=== PATIENT | female | born 1975 | race Caucasian/White ===

== ENCOUNTER 2016-05-06 21:21 | Emergency (ER) | payer BC, OTHER ==
[2016-05-06 21:44] VITALS: BP 135/82
[2016-05-06] MEDS ORDERED: Polymyx/Trimethoprim OPTH* 10 ML BTL LEFT EYE ONE (21:59)
--- NOTE | 2016-05-06 22:02 | UC ---
Eye Complaint HPI - HPI Summary HPI Summary: Stye in left lower lid-noticed some irritation 2 days ago and a "lump tonight" - History of Current Complaint Chief Complaint: UCEye Stated Complaint: EYE COMPLAINT Time Seen by Provider: 05/06/16 21:47 Hx Obtained From: Patient Hx Last Menstrual Period: 2 WEEKS AGO ?: No Onset/Duration: Sudden Onset, Lasting Days - 2, Still Present, Worse Since - today Timing: Constant Severity Initially: Mild Severity Currently: Mild Pain Intensity: 2 Pain Scale Used: 0-10 Numeric Location of Injury: Eye Lid (lower) Character: Foreign Body Sensation Aggravating Factor(s): Nothing Associated Signs And Symptoms: Positive: Negative - Allergies/Home Medications Allergies/Adverse Reactions: Allergies Allergy/AdvReac Type Severity Reaction Status Date / Time No Known Allergies Allergy Verified 05/06/16 21:44 Home Medications: Home Medications NK [No Home Medications Reported] 05/06/16 [History Confirmed 05/06/16] PMH/Surg Hx/FS Hx/Imm Hx Previously Healthy: Yes Endocrine History Of: Denies: Diabetes, Thyroid Disease Cardiovascular History Of: Denies: Cardiac Disorders, Hypertension Respiratory History Of: Denies: COPD, Asthma GI/ History Of: Denies: Ulcer Cancer History Of: Denies: Breast Cancer - Surgical History Surgical History: Yes Surgery Procedure, Year, and Place: June 2005 and April 2009. 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 Lives: With Family Alcohol Use: Occasionally Substance Use Type: None Smoking Status (MU): Never Smoked Tobacco Review of Systems Constitutional: Negative Skin: Negative Eyes: Negative, Other - lower left lid tender ENT: Negative Respiratory: Negative Cardiovascular: Negative Gastrointestinal: Negative Genitourinary: Negative Motor: Negative Neurovascular: Negative Musculoskeletal: Negative Neurological: Negative Psychological: Negative All Other Systems Reviewed And Are Negative: Yes Physical Exam Triage Information Reviewed: Yes Appearance: Well-Appearing, No Pain Distress, Well-Nourished Vital Signs: Initial Vital Signs Temp 98.4 F 05/06/16 21:39 Pulse 88 05/06/16 21:39 Resp 16 05/06/16 21:39 BP 135/82 05/06/16 21:39 Pulse Ox 99 05/06/16 21:39 Vital Signs Reviewed: Yes Eye Exam: Normal Eyes: Positive: Conjunctiva Clear, Other: - smal firm lesion inside left lower lid ENT Exam: Normal ENT: Positive: Normal ENT inspection, Hearing grossly normal, Pharynx normal. Negative: Nasal congestion, Nasal drainage, Tonsillar swelling, Tonsillar exudate, Trismus, Muffled/hoarse voice Neck exam: Normal Neck: Positive: Supple, Nontender, No Lymphadenopathy Respiratory Exam: Normal Respiratory: Positive: Chest non-tender, No respiratory distress, No accessory muscle use Cardiovascular Exam: Normal Cardiovascular: Positive: RRR, Pulses Normal, Brisk Capillary Refill Musculoskeletal Exam: Normal Musculoskeletal: Positive: Strength Intact, ROM Intact, No Edema Neurological Exam: Normal Neurological: Positive: Alert, Muscle Tone Normal Psychological Exam: Normal Skin Exam: Normal Eye Complaint Course/Dx - Course Course Of Treatment: eye drops, warm compress, follow with opthamology - Differential Dx/Diagnosis Differential Diagnosis/HQI/PQRI: Periorbital Cellulitis, Orbital Cellulitis, Other - stye Provider Diagnoses: Hordeolum left lower eye lid Discharge - Discharge Plan Condition: Stable Disposition: HOME Patient Education Materials: Stye (ED), How to Use Eye Drops (ED), Heat Pack Application (ED) Referrals: Monico Vigil MD [Medical Doctor] - 7 Days Waleska Hoang MD [Medical Doctor] -
== END 2016-05-06 22:27 | disposition home or self-care (01) ==
LOC: UCEAST 21:21
DX: H00.015 Hordeolum externum left lower eyelid (principal)
CPT/HCPCS: 99212; G0463

== ENCOUNTER 2018-10-28 01:32 | Emergency (ER) | payer BC, OTHER ==
--- OUTSIDE RECORDS SUMMARY | 2018-10-28 02:03 | XMS REPORT | Continuity of Care Document ---
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 Allergies, Adverse Reactions, Alerts Description No Known Drug Allergies Medications Active Medications SIG Qnty Indications Ordering Provider Date Levothyroxine Sodium 50mcg by mouth 30tabs R94.6 Brayden Be MD 2018 daily on empty 50mcg Tablets stomach Multi For Her 50+ 1 by mouth every Unknown day Capsules Norethindrone Acetate 1 by mouth three Unknown 5mg times daily for Tablets 7 days then take 1 tablet by mouth daily. Immunizations Description No Information Available Vital Signs Date Vital Result Comment 10/23/2018 9:09am Height 62 inches 5'2" Weight 228.00 lb Heart Rate 87 /min BP Systolic 121 mmHg BP Diastolic 79 mmHg O2 % BldC Oximetry 96 % BMI (Body Mass Index) 41.7 kg/m2 Last Menstrual Period [id number] 10/12/2018 11:20am Height 62 inches 5'2" Weight 235.00 lb w/o shoes Heart Rate 87 /min BP Systolic Sitting 129 mmHg BP Diastolic Sitting 91 mmHg BMI (Body Mass Index) 43.0 kg/m2 Results Test Date Facility Test Result H/L Range Note Laboratory test 10/23/2018 [facility] Surgical <pending> finding [address] [place] [address] [phone] CBC Auto Diff 10/22/2018 [facility] White Blood 10.1 Normal 3.5-10.[address] Count 10^3/[place] [address] [phone] Red Blood Count 3.85 10^6/uL Normal 3.70-4.87 Hemoglobin 10.8 g/dL Low 12.0-16.0 Hematocrit 32 % Low 35-47 Mean Corpuscular Volume 82 fL Normal 80-97 Mean Corpuscular Hemoglobin 28 pg Normal 27-31 Mean Corpuscular HGB Conc 34 g/dL Normal 31-36 Red Cell Distribution Width 15 % Normal 10-15 Platelet Count 361 10^3/uL Normal 150-450 Mean Platelet Volume 8.5 fL Normal 7.4-10.4 Abs Neutrophils 7.0 10^3/uL Normal 1.5-7.7 Abs Lymphocytes 2.2 10^3/uL Normal 1.0-4.8 Abs Monocytes 0.6 10^3/uL Normal 0-0.8 Abs Eosinophils 0.1 10^3/uL Normal 0-0.6 Abs Basophils 0.0 10^3/uL Normal 0-0.2 Abs Nucleated RBC 0.0 10^3/uL Granulocyte % 69.6 % Lymphocyte % 22.2 % Monocyte % 6.4 % Eosinophil % 1.4 % Basophil % 0.4 % Nucleated Red Blood Cells % 0.1 Laboratory test 10/22/2018 [facility] HCG < 0.60 mIU/ mL [address] [place] [address] [phone] FSH (Follicle Stim Hormone) 9.1 mIU/mL 2 1 <5.0 Negative 5.0 - 25.0 Indeterminate (Repeat testing recommended after 72 hours) >25.0 Positive Perimenopausal women can display HCG levels of up to 20 mIU/mL 2 Normally menstruating females - Follicular phase 3 - 9 - Mid-cycle peak 4 - 23 - Luteal phase 1 - 6 Postmenopausal females 16 - 114 Procedures Description No Information Available Medical Devices Description No Information Available Encounters Type Date Location Provider Dx Diagnosis Office Visit 10/12/2018 [facility] Brayden Be MD R94.6 Abnormal results 11:00a Endocrinology [facility] of thyroid function studies E04.1 Nontoxic single thyroid nodule R63.5 Abnormal weight gain Z68.41 Body mass index (BMI) 40.0-44.9, adult Assessments Date Code Description Provider 10/12/2018 R94.6 Abnormal results of thyroid function studies Brayden Be MD 10/12/2018 E04.1 Nontoxic single thyroid nodule Brayden Be MD 10/12/2018 R63.5 Abnormal weight gain Brayden Be MD 10/12/2018 Z68.41 Body mass index (BMI) 40.0-44.9, adult Brayden Be MD Plan of Treatment Future Appointment(s):01/15/2019 9:00 am - Warren Medrano at [facility] Functional Status Description No Information Available Mental Status Description No Information Available Referrals Description No Information Available
--- OUTSIDE RECORDS SUMMARY | 2018-10-28 02:03 | XMS REPORT | Continuity of Care Document ---
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 No Information Available Social History Type Date Description Comments Sex Unknown ETOH Use Occasionally consumes average once weekly alcohol Tobacco Use Start: Unknown Patient is a former quit in her 20's End: Unknown smoker Recreational Drug Use Denies Drug Use Smoking Status Reviewed: 10/12/18 Patient is a former quit in her [...] 1 by mouth every Unknown day Capsules Immunizations Description No Information Available Vital Signs Date Vital Result Comment 10/12/2018 11:20am Height 62 inches 5'2" Weight 235.00 lb w/o shoes Heart Rate 87 /min BP Systolic Sitting 129 mmHg BP Diastolic Sitting 91 mmHg BMI (Body Mass Index) 43.0 kg/m2 Results Description No Information Available Procedures Description No Information Available Medical Devices Description No Information Available Encounters Description No Information Available Assessments Date Code Description Provider 10/12/2018 E04.1 Nontoxic single thyroid nodule Brayden Be MD 10/12/2018 R94.6 Abnormal results of thyroid function studies Brayden Be MD 10/12/2018 Z68.41 Body mass index (BMI) 40.0-44.9, adult Brayden Be MD Plan of Treatment Future Appointment(s):01/15/2019 9:00 am - LACY Medrano-Samir at [facility]10/12/2018 - Brayden Be MDE04.1 Nontoxic single thyroid noduleNew Xrays:US Thyroid, Scheduled: 10/26/18Follow up:3 months EdgarInstructions:1. Start trial of levothyroxine 50mcg daily. 2. Return in 4-6 weeks for non-fasting blood tests. 3. Schedule an ultrasound of the thyroid. 4. Try Lose It application for weight loss and target carbohydrate goal of 45g/day or less. 5. Return in 3 months for a follow-up visit with Asia Hernández.R94.6 Abnormal results of thyroid function studiesNew Medication: Levothyroxine Sodium 50 mcg - 50mcg by mouth daily on empty stomachNew Labs:TSH (Thyroid Stim Horm), Scheduled: 10/12/18Free T4 (Free Thyroxine), Scheduled: Z68.41 Body mass index (BMI) 40.0-44.9, adult Functional Status Description No Information Available Mental Status Description No Information Available Referrals Description No Information Available
--- NOTE | 2018-10-28 02:07 | ED ---
Shortness of Breath - HPI Summary HPI Summary: Pt is a 43 y/o F presenting to the ED with a chief complaint of shortness of breath. She states she has had strange symptoms recently, including intense vaginal bleeding that she has been treating, and increased fatigue. She woke up out of a sleep with very sudden shortness of breath and palpitations, but her sx have since resolved. - History of Current Complaint Chief Complaint: EDShortnessOfBreath Time Seen by Provider: 10/28/18 01:41 Hx Obtained From: Patient Onset/Duration: Sudden Onset, Lasting Minutes, Resolved Current Severity: Moderate Dyspnea At: Other - woke her up Aggravating Factors: Nothing Alleviating Factors: Spontaneous Resolution - Allergy/Home Medications Allergies/Adverse Reactions: Allergies Allergy/AdvReac Type Severity Reaction Status Date / Time No Known Allergies Allergy Verified 05/06/16 21:44 PMH/Surg Hx/FS Hx/Imm Hx Previously Healthy: Yes Endocrine/Hematology History: Denies: Hx Diabetes, Hx Thyroid Disease Cardiovascular History: Denies: Hx Hypertension Respiratory History: Denies: Hx Asthma, Hx Chronic Obstructive Pulmonary Disease (COPD) GI History: Denies: Hx Ulcer - Cancer History Hx Chemotherapy: No Hx Radiation Therapy: No - Surgical History Surgery Procedure, Year, and Place: June 2005 and April 2009. d+c, foreign object removal (IUD) laproscopic spring 2011, Uterine/ovarian cyst removal 1997, LEFT EYE MILLIA REMOVAL 01/2016 - Immunization History Immunizations Up to Date: Yes Infectious Disease History: No Infectious Disease History: Denies: Hx Hepatitis, Hx Human Immunodeficiency Virus (HIV), History Other Infectious Disease, Traveled Outside the [place] in Last 30 Days - Family History Known Family History: Negative: Hypertension - Social History Alcohol Use: Occasionally Hx Substance Use: No Substance Use Type: Reports: None Hx Tobacco Use: No Smoking Status (MU): Never Smoked Tobacco Review of Systems Positive: Fatigue Positive: Palpitations Positive: Shortness Of Breath Positive: other - vaginal bleeding All Other Systems Reviewed And Are Negative: Yes Physical Exam - Summary Physical Exam Summary: Appearance: Well-appearing, Well-nourished, lying in bed comfortably Skin: Warm, dry, no obvious rash Eyes: sclera anicteric, no conjunctival pallor ENT: mucous membranes moist, pharynx appears normal Neck: Supple, nontender Respiratory: Clear to auscultation, no signs of respiratory distress Cardiovascular: Normal S1, S2. No murmurs. Normal distal pulses in tibial and radial bilaterally. Abdomen: Soft, nontender, normal active bowel sounds present Musculoskeletal: Normal, Strength/ROM Intact Neurological: A&Ox3, awake and alert, mentation is normal, speech is fluent and appropriate Psychiatric: affect is normal, does not appear anxious or depressed Triage Information Reviewed: Yes Vital Signs On Initial Exam: Initial Vitals Temp Pulse Resp BP Pulse Ox 98.8 F 94 18 139/87 99 10/28/18 01:34 10/28/18 01:34 10/28/18 01:34 10/28/18 01:34 10/28/18 01:34 Vital Signs Reviewed: Yes Diagnostics - Vital Signs Vital Signs Temp Pulse Resp BP Pulse Ox 10/28/18 01:34 98.8 F 94 18 139/87 99 - Laboratory Result Diagrams: 10/28/18 02:16 Lab Statement: Any lab studies that have been ordered have been reviewed, and results considered in the medical decision making process. Course/Dx - Course Course Of Treatment: Pt is a 43 y/o F presenting to the ED with a chief complaint of shortness of breath. She states she has had strange symptoms recently, including intense vaginal bleeding that she has been treating, and increased fatigue. She woke up out of a sleep with very sudden shortness of breath and palpitations, but her sx have since resolved. Pt's physical exam is nml. Pt's bloodwork is WNL. She will be d/c'ed with dx of parasomnia. She is stable and agreeable with this plan. - Diagnoses Provider Diagnoses: Parasomnia Discharge ED - Sign-Out/Discharge Documenting (check all that apply): Patient Departure Patient Received Moderate/Deep Sedation with Procedure: No - Discharge Plan Condition: Good Disposition: HOME Patient Education Materials: Dyspnea (ED) Referrals: Priya Nguyen MD [Primary Care Provider] - Additional Instructions: I think you suffered from a parasomnia tonight, which is a disruption in your sleep cycle. This could be from the stress or perhaps the hormones you were prescribed. It is a benign condition, so you can continue the medication. We do not see any sign of a primary problem in the lungs. - Billing Disposition and Condition Condition: GOOD Disposition: Home - Attestation Statements Document Initiated by David: Yes Documenting Scribe: Loli Smith Provider For Whom David is Documenting (Include Credential): Andrés Mejia MD. Scribe Attestation: Loli Mustafa, lanceed for Andrés Mejia MD. on 10/29/18 at 0506. Scribe Documentation Reviewed: Yes Provider Attestation: The documentation as recorded by the jesusibe, Loli Smith accurately reflects the service I personally performed and the decisions made by me, Andrés Mejia MD. Status of Scribe Document: Viewed
[2018-10-28 02:23] LABS: ABS Eosinophils 0.1 10^3/ul (0-0.6); ABS Lymphocytes 2.2 10^3/ul (1.0-4.8); ABS Monocytes 0.8 10^3/ul (0-0.8); Eosinophil % 1.2 %; Hematocrit 31 % (35-47); Hemoglobin 10.4 g/dL (12.0-16.0); Lymphocyte % 21.8 %; Mean Corpuscular HGB Conc 33 g/dL (31-36); Mean Corpuscular Hemoglobin 28 pg (27-31); Mean Corpuscular Volume 83 fL (80-97); Mean Platelet Volume 7.8 fL (7.4-10.4); Platelet Count 338 10^3/uL (150-450); Red Blood Count 3.77 10^6 /uL (3.70-4.87); Red Cell Distribution Width 15 % (10-15); White Blood Count 10.3 10^3/uL (3.5-10.8)
[2018-10-28 02:44] VITALS: BP 113/72
== END 2018-10-28 03:09 | disposition home or self-care (01) ==
LOC: ED 01:32
DX: G47.50 Parasomnia, unspecified (principal); R06.02 Shortness of breath; R53.83 Other fatigue; R00.2 Palpitations
CPT/HCPCS: 36415; 85025; 99282

== ENCOUNTER 2018-11-07 11:30 | Observation (INO) | payer BC ==
[2018-11-07] MEDS ORDERED: Scopolamine 1.5 mg* PATCH ONE (12:48)
[2018-11-07] MEDS ORDERED: LORazepam TAB(*) 1 MG ONE (12:49)
[2018-11-07] MEDS ORDERED: oxyCODONE SR TAB(*) 10 MG TAB.SR ONE (12:49)
[2018-11-07] MEDS ORDERED: Ondansetron INJ* 2 MG/ML VIAL ONE (12:49)
[2018-11-07] MEDS ORDERED: Naproxen TAB* 250 MG ONE (12:49)
[2018-11-07] MEDS ORDERED: Clindamycin 900 MG/D5W BAG(*) 900 MG/50 ML BAG IVPB ONE (13:00)
[2018-11-07] MEDS ORDERED: Lidocaine 1% INJ* 10 MG/ML 30 ML SDV ONE (13:10)
[2018-11-07] MEDS ORDERED: Iohexol 350 (CONTRAST) 200 ML MDV IV ONE (13:10)
[2018-11-07] MEDS ORDERED: Heparin 2 UNITS/ML IVPREMIX* 2,000 ML IV ONE (13:11)
[2018-11-07] MEDS ORDERED: Midazolam* 1 MG/ML 5 ML VIAL (5 MG) ONE ×2 (13:27→14:38)
[2018-11-07] MEDS ORDERED: fentaNYL* 50 MCG/ML 5 ML VIAL (250 MCG VIAL) ONE ×2 (13:27→14:48)
[2018-11-07] MEDS ORDERED: Ketorolac INJ* 30 MG/ML 1 ML VIAL ONE (13:27)
[2018-11-07] MEDS ORDERED: nitroGLYCERIN DRIP* 25,000 MCG/250 ML BTL ONE (13:31)
[2018-11-07] MEDS ORDERED: Heparin(*) 1000 UNIT/ML 10 ML VIAL CATH LAB IV ONE (14:02)
[2018-11-07] MEDS ORDERED: VERAPAMIL 2.5 MG/ML 2 ML VIAL ** 5 mg/2 ml ONE (14:02)
[2018-11-07] MEDS ORDERED: PROCHLORPERAZINE INJ 5 MG/ML 2 ML VIAL ONE (14:55)
[2018-11-07] MEDS ORDERED: HYDROmorphone INJ1* 1 MG/ML SYRINGE ONE ×2 (15:59→17:24)
[2018-11-07] MEDS ORDERED: HYDROmorphone PCA* 20 MG/20 ML PCA.SYRING ONE (16:21)
[2018-11-07] MEDS ORDERED: Docusate CAP* 100 MG PO PRN (17:49)
[2018-11-07] MEDS ORDERED: ALPRAZolam TAB* 0.25 MG PO PRN (17:49)
--- NOTE | 2018-11-07 19:20 | PN ---
Progress Note - Progress Note Date of Service: 11/07/18 SOAP: Subjective: Sleeping quietly. When woken up states pain is "7/10". Denies nausea or emesis. Has had sips of ice water. + vaginal bleeding (unchanged from presentation today) Objective: Selected Entries 11/07/18 18:33 Temperature 98.5 F Temperature Temporal Artery Source Scan Pulse Rate 70 Respiratory 18 Rate Blood Pressure 114/61 (mmHg) O2 Sat by Pulse 99 Oximetry Oxygen Flow 2 Rate Sleeping, but arousable to voice. AAO x 3 Low abdomen and pelvis are soft, but tender to deep palpation over the suprapubic area. Left radial pulse is 2+ Tegaderm is clean, dry and intact. No hematoma. No bleeding. Left hand is warm to touch. Left hand and wrist motor function is grossly intact. Sensation to light touch in the distribution of the left radial/median/ulnar nerves intact. Assessment: 43 YOF status post left radial arteriotomy Uterine Fibroid Arterial Embolization with pain and nausea adequately controlled. Plan: 1. Wrist brace may be removed at 2400 hours if patient is awake and/or it is bothering her. Otherwise it will be removed in the AM. 2. Continute routine post UFE care per IR protocol with addition of PRN compazine for nausea/emesis. 3. IR will round in AM. 4. Advance PO cautiously. 5. Care and plan d/w Jorgito, the overnight RN caring for her.
[2018-11-07] MEDS ORDERED: PROCHLORPERAZINE INJ 5 MG/ML 2 ML VIAL IV PRN (19:21)
--- NOTE | 2018-11-07 19:35 | HP ---
CC: Dr. Priya Nguyen; Dr. Wilfrid Watson; Dr. Adam Burton * HISTORY AND PHYSICAL: DATE OF ADMISSION: 11/07/18 PRIMARY CARE PROVIDER: Dr. Priya Nguyen. OUTPATIENT SUPERVISOR DRILLING AND SHOOTING: Dr. Wilfrid Watson. INTERVENTIONAL RADIOLOGIST: Dr. Adam Burton ATTENDING PHYSICIAN: Dr. Marga Clark.* (DICTATED BY DELTA MANCINI NP) REASON FOR VISIT: Uterine fibroid embolization. HISTORY OF PRESENT ILLNESS: Ms. Jeffries is a 43-year-old G2, P2-0-1- 3, with past medical history of anxiety, anemia and hypothyroidism, who presents [place] [facility] [place] an elective uterine fibroid embolization. The patient has been experiencing prolonged periods and recently began experiencing menorrhagia and noted to pass some clots reportedly as large as strawberries. The patient notes that this has interfered with her day-to-day life. She was referred to Dr. Burton and after consultation, she elected to proceed with a uterine fibroid embolization. In the PACU, the patient is quite sedated and is unable to provide much subjective information, though notes significant abdominal cramping. She reports that pain medications she is receiving are helping to some degree, though not taking the pain away to a tolerable level. She is also experiencing nausea, though no vomiting. At the end of the procedure, the patient reportedly complained of some left arm tingling after the left radial access site was de- accessed, though that has resolved and the patient no longer has any complaints related to the left arm. The hospitalist service was asked to see the patient for admission for observation postoperatively. PAST MEDICAL HISTORY: 1. Uterine fibroids. 2. Endometriosis. 3. Anemia. 4. Hypothyroidism. 5. Anxiety. PAST SURGICAL HISTORY: 1. section x2. 2. D and C. 3. Laparoscopic removal of perforated IUD. 4. Oophorectomy (unclear if this is accurate as both ovaries have been visualized on recent ultrasound). HOME MEDICATIONS: 1. Alprazolam 0.25 mg p.o. b.i.d. p.r.n. anxiety. 2. Docusate 100 mg p.o. b.i.d. p.r.n. constipation. 3. Ferrous sulfate 325 mg p.o. b.i.d. 4. Levothyroxine 50 mcg p.o. daily. 5. Norethindrone 1 tab p.o. daily. ALLERGIES: No known drug allergies. FAMILY HISTORY: The patient's mother has a history of diabetes, hyperlipidemia , and hypertension. Father has a history of psoriasis, hyperlipidemia, and hypertension. 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 The patient is a former smoker. She consumes occasional alcohol. She lives at home with her and children. The patient's , Toby, will be her surrogate decision maker in the event she is unable to make her own decisions. REVIEW OF SYSTEMS: An 11-point review of systems was attempted and all the pertinent positive and negative findings are in the HPI, although review of systems was difficult due to sedation. All other systems are negative. PHYSICAL EXAMINATION GENERAL: Ms. Jeffries is a well-developed, well-nourished, overweight , white middle-aged female, lying in bed, in no acute distress. She appears her stated age. VITAL SIGNS: Temp 97.9, heart rate 77, respiratory rate 23, oxygen saturation 98% on 2 L, blood pressure 139/92. HEENT: Head is atraumatic, normocephalic. Visual wyatt are grossly intact. Oral mucous membranes moist. NECK: Thyroid not palpable. Trachea at midline. No lymphadenopathy. RESPIRATORY: Symmetrical chest expansion. No chest wall deformities. Lungs are clear to auscultation throughout. No rhonchi, wheezes, or rubs. CARDIOVASCULAR: Regular rate and rhythm. S1, S2 present. No murmurs, rubs, or gallops. ABDOMEN: Deferred due to pain. EXTREMITIES: Skin warm and smooth bilaterally. No edema. NEURO: Sedated, but arouses to voice, oriented x4. Moves all extremities. No neurological deficits to left upper extremity. SKIN: There is a left radial access site, which is clean, dry, and intact. DIAGNOSTIC STUDIES/LAB DATA: Beta hCG today less than 0.60. Lab work on 10/28 reveals WBC 10.3, RBC 3.77, hemoglobin 10.4, hematocrit 31, platelets 338. ASSESSMENT AND PLAN: Ms. Jeffries is a 43-year-old female with past medical history of anxiety, anemia, hypothyroidism and uterine fibroids, who presents [place] [facility] [place] for an elective uterine fibroid embolization with Dr. Burton. The patient will be admitted observation for: 1. Status post uterine fibroid embolization. The patient will be placed on typical UFE orders and paper orders have been completed by Dr. Burton. The patient will have a Dilaudid PHARMACY BENEFITS COORDINATOR for pain as well as Toradol. She will have Zofran available for nausea and already has a scopolamine patch in place. Dr. Burton has already written orders to remove the Hassan, advance diet slowly, and when the patient may come off bedrest. Regarding the patient's access site, this will be treated per [facility] protocol. Dr. Burton did speak with the nurse in the PACU who has received specific instructions on neurovascular checks on the left upper extremity to ensure there are no recurrent symptoms. The patient will be monitored and will likely be discharged in the morning as long as she does well overnight. 2. Anxiety. Continue alprazolam. 3. Hypothyroidism. Continue levothyroxine. 4. Anemia. Continue ferrous sulfate. 5. FEN. Dr. Burton has ordered normal saline at 125 mL per hour. As noted above, she will have a regular diet starting with clears and advancing as tolerated. 6. Code status. The patient will be a full code. 7. DVT prophylaxis. According to the DVT Risk Assessment, the patient scores a 4, putting her at high risk. I have ordered SCDs, though have not ordered any chemical prophylaxis at this time due to her postoperative status. TIME SPENT: Approximately 45 minutes was spent on this admission, about half of that time spent with the patient obtaining my history, performing my physical exam, and reviewing the plan of care. This case has been reviewed with my attending, Dr. Clark, who is in agreement with the plan of care. DELTA MANCINI, ANNE [id number]/[facility] #: [id number] JESSICA
[2018-11-07] MEDS ORDERED: NS 0.9% 1000 ML** 1,000 ML IV SCH (19:45)
[2018-11-07] MEDS ORDERED: HYDROmorphone PCA 1 MG/ML Titrat per Protocol PCA SCH (20:00)
[2018-11-07] MEDS: Ondansetron INJ* 2 MG/ML VIAL IV SCH (21:30)
[2018-11-07] MEDS: Ketorolac INJ* 15 MG/ML 1 ML VIAL IV PUSH SCH (21:32)
[2018-11-07] MEDS: Ferrous Sulfate TAB* 325 MG PO SCH (21:34)
[2018-11-08] MEDS: Ondansetron INJ* 2 MG/ML VIAL IV SCH ×2 (03:20→09:24)
[2018-11-08] MEDS: Ketorolac INJ* 15 MG/ML 1 ML VIAL IV PUSH SCH ×2 (03:22→09:23)
[2018-11-08 05:46] LABS: ABS Lymphocytes 1.3 10^3/ul (1.0-4.8); ABS Monocytes 0.7 10^3/ul (0-0.8); ABS Neutrophils 10.2 10^3/ul (1.5-7.7); Eosinophil % 0.1 %; Hematocrit 36 % (35-47); Hemoglobin 11.3 g/dL (12.0-16.0); Lymphocyte % 10.6 %; Mean Corpuscular HGB Conc 32 g/dL (31-36); Mean Corpuscular Hemoglobin 27 pg (27-31); Mean Corpuscular Volume 85 fL (80-97); Mean Platelet Volume 8.6 fL (7.4-10.4); Platelet Count 330 10^3/uL (150-450); Red Blood Count 4.18 10^6 /uL (3.70-4.87); Red Cell Distribution Width 16 % (10-15); White Blood Count 12.3 10^3/uL (3.5-10.8)
[2018-11-08] MEDS ORDERED: Levothyroxine TAB* 50 MCG TAB PO SCH (06:00)
[2018-11-08 06:05] LABS: BUN/Creatinine Ratio 12.9 (8-20); EGFR Non-African American 104.1 (>60)
[2018-11-08] MEDS ORDERED: NORETHINDRONE ACETATE 5 MG PO SCH ×2 (09:00)
[2018-11-08] MEDS: Ferrous Sulfate TAB* 325 MG PO SCH (09:27)
[2018-11-08] MEDS ORDERED: HYDROcodone/ACETAMIN 5-325 MG* 1 TAB PO PRN (09:43)
--- NOTE | 2018-11-08 09:52 | PN ---
Progress Note - Progress Note Date of Service: 11/08/18 SOAP: Subjective: Cramping pain rated as 5/10. "Feels like a bad menstrual cramps, but not as bad as childbirth". +nausea overnight, but no emesis. + void. + ambulation. + vaginal bleeding ( unchanged since presentation the previous day) Has had ice water and santy dwain O/N Objective: Selected Entries 11/08/18 07:11 Temperature 98.2 F Temperature Oral Source Pulse Rate 88 Respiratory 16 Rate Blood Pressure 128/73 (mmHg) Blood Pressure 91 Mean O2 Sat by Pulse 100 Oximetry Patient on Room Yes Air Sleeping upon my arrival, but arousable to voice. AAO x 3 Low abdomen and pelvis are soft, but tender to deep palpation over the suprapubic area. Left radial pulse is 2+ Tegaderm with scant dry blood. No hematoma. No bleeding. No tenderness in LUE. Left hand & wrist motor function is grossly intact. Normal bryologist strength. Sensation intact to light touch at R/M/U nerve distributions Assessment: 43 YOF POD #1 s/p Uterine Fibroid Arterial Embolization with pain and nausea reasonably well controlled. Plan: 1. Transition IV to PO meds. 2. Encourage solid PO intake (Cream of Wheat ordered). 3. Ambulation with assistance. 4. Outpatient medications will be as follows: Toradol 10 mg PO Q 6 hours x 3 days (Dispense #15 with one refill) AFTER Toradol is complete: Ibuprofen 400 mg PO Q 6 hours OR Naprosyn 225 mg PO Q 8 hours for 3-5 days (do not take both) [place] 5/325, take 1 or 2 tablets by mouth Q 6 hours PRN breakthrough pain ( Dispense #40) Compazine 5 mg PO Q 6 hours x 7 days (Dispense #30 with one refill) Zofran 4 mg PO Q 6hours x 7 days (Dispense #30 with one refill) Compazine and Zofran will be "staggered". For example ; Compazine at 900, Zofran at 1200, Compazine at 1500 and so on. Scopolamine 1.5 mg transdermal to mastoid process. On Monday11/10/18 at 900 AM, remove current patch, replace with new patch and wear x 3 days. Drink one cup of laxative tea daily (For example, "Smooth Move") for one week.
[2018-11-08] MEDS ORDERED: Ondansetron TAB* 4 MG PO SCH (10:00)
[2018-11-08] MEDS: Ketorolac TAB * 10 MG TAB PO SCH ×2 (10:13→13:56)
[2018-11-08 11:11] VITALS: BP 128/80
[2018-11-08] MEDS ORDERED: Prochlorperazine TAB* 5 MG PO SCH (13:00)
--- NOTE | 2018-11-09 00:17 | DS ---
CC: Dr. Priya Nguyen; Dr. Wilfrid Watson; Dr. Adam Burton * DISCHARGE SUMMARY: DATE OF ADMISSION: 11/07/18 DATE OF DISCHARGE: 11/08/18 PRIMARY CARE PROVIDER: Dr. Priya Nguyen. OUTPATIENT LUMP RECEIVER: Dr. Wilfrid Watsno. INTERVENTIONAL RADIOLOGIST: Dr. Adam Burton. ATTENDING PHYSICIAN: Dr. Mario Bentley.* (DICTATED BY DELTA MANCINI NP) PRIMARY DIAGNOSIS: 1. Uterine fibroids, status post arterial embolization. SECONDARY DIAGNOSES: 1. Anxiety. 2. Hypothyroidism. 3. Anemia. PROCEDURES WHILE IN THE HOSPITAL: 1. Uterine artery embolization from a left radial arteriotomy with Dr. Burton on 11/07/18. HISTORY OF PRESENT ILLNESS AND HOSPITAL COURSE: Ms. Jeffries is a 43- year-old female with past medical history of uterine fibroids, endometriosis, anemia, hypothyroidism, and anxiety, who [place] [facility] [place] for an elective uterine fibroid embolization. Please see the history and physical by myself for complete summary of the events leading up to this hospitalization. In short, the patient has been suffering from complications from uterine fibroids for quite some time and elected to proceed with an embolization with Dr. Burton. The patient underwent the procedure yesterday on 11/07/18 and tolerated the procedure well. When the catheter was removed from the left radial access site after the procedure, the patient did complain of some tingling in the left arm, which is suspected to be from a spasm and that resolved relatively quickly without further complications. She was admitted by the hospitalist service for overnight observation. The patient did well overnight. She was utilizing Dilaudid LEAN SPECIALIST for pain management. She did have occasional nausea, but that was well managed with Zofran and Compazine. Vitals were stable. The patient did have lab work this morning, which revealed a mild leukocytosis with a white blood count of 12.3, which does not represent any sort of infection, but is rather reactive leukocytosis due to the procedure. The patient was seen by Dr. Burton this morning, who advised that she was stable for discharge from his perspective. PHYSICAL EXAMINATION: On my exam, the patient reports that she has been able to tolerate solid food this morning, though appetite is somewhat decreased. She does report significant abdominal cramping, which at that point she was attempting to manage with oral narcotics, as her LEAN SPECIALIST had already been discontinued. She is not having any further nausea. No further neurological concern to the left upper extremity. On exam, she has no focal neurological deficits. Her heart has a regular rate and rhythm without murmurs, rubs, or gallops. Her lungs are clear to auscultation without rhonchi, wheezes, or rubs. Abdomen has normoactive bowel sounds, though palpation was deferred at this time due to significant pain. The patient is looking forward to going home to recover. Ms. Jeffries is stable for discharge today. Vital signs are as follows: Temp 98.3, heart rate 80, respiratory rate 16, oxygen saturation 98% on room air, blood pressure 128/80. DISCHARGE MEDICATIONS: New medications: 1. Tye 5/325 one to two tabs p.o. q.6 hours p.r.n. breakthrough pain. 2. Ibuprofen 400 mg p.o. q.6 hours x3 to 5 days or Naprosyn 225 mg every 8 hours for 3 to 5 days. 3. Toradol 10 mg p.o. q.6 hours x3 days. 4. Ondansetron 4 mg p.o. q.6 hours x7 days. 5. Compazine 5 mg p.o. q.6 hours x7 days. 6. Scopolamine 1.5 mg patch, 1 patch transdermal q.72 hours to be replaced on 11/10/18. Continued medications: 1. Alprazolam 0.25 mg p.o. b.i.d. p.r.n. anxiety. 2. Docusate 100 mg p.o. b.i.d. p.r.n. constipation. 3. Ferrous sulfate 325 mg p.o. b.i.d. 4. Levothyroxine 50 mcg p.o. daily. 5. Norethindrone 5 mg p.o. daily. DISCHARGE PLAN: Ms. Jeffries will be discharged home. Activity restrictions will be per Dr. Burton. The patient should avoid strenuous activity for 1 week. She should slowly increase her activity levels. She should avoid any tub bath or swimming for 1 week, and should practice pelvic rest for the next 4 weeks. She has been instructed not to drive while she is taking prescription pain medications. Diet will be regular as tolerated. The patient has been encouraged to use a laxative tea while she is on narcotic pain medications. She has been given other instructions from Dr. Burton specifically for what to do in the event of vaginal discharge or spotting, and should notify a provider if she develops any foul smelling vaginal discharge especially if it is accompanied by fever, chills, or pelvic pain. She has been given instructions on wound care to her left wrist access site including washing the site with soap and water, and observing. The site should remain covered with a Band-Aid for the next 3 days, and if she notices any swelling or bruising, she has been instructed to apply pressure and call 911 if the bleeding has not stopped. Medications are noted above. The patient was prescribed medications based on recommendations from Dr. Burton. She will take Toradol for 3 days and thereafter can take ibuprofen or naproxen. She has been advised that she is not to take Toradol, ibuprofen, or naproxen together and she is understanding of this. She can take Tye for any breakthrough pain. She has been prescribed Zofran and Compazine, which she can alternate to help control any nausea and has been prescribed 1 scopolamine patch. She already has a patch in place and can replace the current patch on 11/10/18. She will need to follow up as previously instructed and will see Dr. Burton in approximately 6 weeks. She can follow up with her primary care provider and handwriting expert as necessary. The patient should return to the emergency room or nearest hospital for any worsening of symptoms, shortness of breath, lightheadedness, dizziness, chest discomfort, high fever, chills, night sweats, loss of consciousness, or any other worrisome signs or symptoms. DISCHARGE CONDITION: Stable. DISCHARGE DISPOSITION: Home. This is a summarized report of a complex medical history and hospital stay. For further details, please see the entire medical record. TIME SPENT: Approximately 45 minutes was spent on this discharge. DELTA MANCINI NP [id number]/[facility] #: [id number] JESSICA
== END 2018-11-08 14:13 | disposition home or self-care (01) ==
LOC: CHICATH 11:30 → SSU 18:18
PROVIDERS: ADMIT Nurse Practitioner Family; ATTEND Internal Medicine
DX: N92.4 Excessive bleeding in the premenopausal period (principal); D25.9 Leiomyoma of uterus, unspecified; F41.9 Anxiety disorder, unspecified; E03.9 Hypothyroidism, unspecified; D64.9 Anemia, unspecified; Z79.899 Other long term (current) drug therapy; Z87.891 Personal history of nicotine dependence
CPT/HCPCS: 36415; 37243; 75736; 76937; 80048; 84702; 85025; 96374; 96375; 96376; 99156; 99157; A9270-GY; C1769; C1884; C1887; G0378; J0780; J1170; J1644; J1885; J2250; J2405; J3010